=== PATIENT | female | born 1965 | race Caucasian/White ===

== ENCOUNTER 2016-10-14 00:59 | Observation (INO) ==
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
[2016-10-14] MEDS ORDERED: Tdap (Boostrix) Vaccine 0.5 ML SYRINGE IM ONE (03:16)
[2016-10-14 03:44] LABS: Basophils # 0.1 K/mcL (0.0-0.2); Basophils % 0.4 %; Eosinophils # 0.2 K/mcL (0.0-0.6); Eosinophils % 0.9 %; Hematocrit 49.5 % (35.3-44.9); Hemoglobin 16.5 g/dL (11.5-15.4); Immature Granulocytes % 0.3 % (0-4); Lymphocytes # 6.2 K/mcL (0.6-4.6); Lymphocytes % 30.1 %; Mean Corpuscular HGB Conc 33.3 g/dL (31.6-35.5); Mean Corpuscular Hemoglobin 28.9 pg (28.0-33.3); Mean Corpuscular Volume 86.7 fL (83.0-100.0); Mean Platelet Volume 9.7 fL (9.4-12.4); Monocytes # 0.9 K/mcL (0.0-1.3); Monocytes % 4.5 %; Neutrophils # 13.1 K/mcL (1.6-8.9); Platelet Count 295 K/mcL (140-400); Red Blood Count 5.71 M/mcL (3.82-4.97); Red Cell Distribution Width 12.7 % (11.5-14.5); Segmented Neutrophils % 63.8 %
[2016-10-14 03:59] LABS: BUN/Creatinine Ratio 12 (6-26); Blood Urea Nitrogen 10 mg/dL (7-20); Calcium 9.7 mg/dL (8.6-10.8); Carbon Dioxide 22 mEq/L (19-29); Chloride 108 mEq/L (98-109); Ethanol 99 mg/dL (0-10); Glucose 79 mg/dL (70-99); Osmolality,Calculated 292 (280-300); Potassium 3.5 mEq/L (3.5-4.5); Sodium 142 mEq/L (136-145); eGFR For African Americans > 60 (> 60); eGFR For Non-African Americans > 60 (> 60)
[2016-10-14 04:01] LABS: Acetaminophen < 1.0 mcg/mL (10-30); Salicylate < 5.0 mg/dL (15-30)
[2016-10-14 04:31] LABS: Bilirubin,Urine Negative (Negative); Blood,Urine Trace (Negative); Clarity,Urine Clear (Clear); Color,Urine Yellow (Yellow); Glucose,Urine (UA) Normal (Normal); Ketones,Urine Negative (Negative); Leukocyte Esterase,Urine Negative (Negative); Nitrite,Urine Negative (Negative); Protein,Urine Trace mg/dL (Neg-Trace); Specific Gravity,Urine 1.008 (1.010-1.025); Urobilinogen,Urine Normal (Normal)
[2016-10-14 04:33] LABS: Bacteria,Urine None Seen per hpf (None-Few); Hyaline Casts,Urine None Seen per lpf (None-Few); RBC,Urine 0-3 per hpf (0-3); Squamous Epithelial Cell,Urine Many per lpf (None-Few); WBC,Urine 0-3 per hpf (0-3)
[2016-10-14 04:36] LABS: Amphetamine Screen,Urine Negative ng/mL (Cutoff=1000); Barbiturate Screen,Urine Negative ng/mL (Cutoff=200); Benzodiazepines Screen,Urine Negative ng/mL (Cutoff=200); Cannabinoid Screen,Urine Negative ng/mL (Cutoff = 50); Cocaine Screen,Urine Positive ng/mL (Cutoff= 300); Opiate Screen,Urine Negative ng/mL (Cutoff=300); Phencyclidine Screen,Urine Negative ng/mL (Cutoff=25)
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
[2016-10-14] MEDS ORDERED: Naloxone 0.4 MG/ML INJ IVP PRN (09:19)
[2016-10-14] MEDS ORDERED: Acetaminophen 325 MG TABLET PO PRN (09:20)
[2016-10-14] MEDS: 0.9 % Sodium Chloride 1,000 ML IVC SCH (09:53)
[2016-10-14] MEDS: *HR* OxyCODONE Immed Rel 5 MG TABLET PO PRN ×2 (11:58→18:01)
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
[2016-10-14] MEDS: *HR* LORazepam 0.5 MG TABLET PO PRN (20:08)
[2016-10-15] MEDS: 0.9 % Sodium Chloride 1,000 ML IVC SCH ×4 (00:28→22:21)
[2016-10-15] MEDS: *HR* OxyCODONE Immed Rel 5 MG TABLET PO PRN ×4 (00:30→19:44)
[2016-10-15] MEDS: *HR* LORazepam 0.5 MG TABLET PO PRN ×3 (07:01→19:50)
--- NOTE | 2016-10-15 12:55 | Electrocardiograph Report ---
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
[2016-10-15] MEDS: Nicotine 14 MG PATCH.TD24 TD SCH (22:18)
[2016-10-16] MEDS: *HR* OxyCODONE Immed Rel 5 MG TABLET PO PRN ×4 (02:45→21:18)
[2016-10-16 04:13] LABS: BUN/Creatinine Ratio 10 (6-26); Blood Urea Nitrogen 7 mg/dL (7-20); Calcium 8.3 mg/dL (8.6-10.8); Carbon Dioxide 24 mEq/L (19-29); Chloride 114 mEq/L (98-109); Glucose 83 mg/dL (70-99); Osmolality,Calculated 295 (280-300); Potassium 3.9 mEq/L (3.5-4.5); Sodium 144 mEq/L (136-145); eGFR For African Americans > 60 (> 60); eGFR For Non-African Americans > 60 (> 60)
[2016-10-16 04:55] LABS: Basophils # 0.1 K/mcL (0.0-0.2); Basophils % 0.6 %; Eosinophils # 0.3 K/mcL (0.0-0.6); Eosinophils % 3.1 %; Hematocrit 36.1 % (35.3-44.9); Hemoglobin 12.4 g/dL (11.5-15.4); Immature Granulocytes % 0.2 % (0-4); Immature Platelets 4.7 % (1.1-6.1); Lymphocytes # 3.7 K/mcL (0.6-4.6); Lymphocytes % 41.1 %; Mean Corpuscular HGB Conc 34.3 g/dL (31.6-35.5); Mean Corpuscular Hemoglobin 30.2 pg (28.0-33.3); Mean Corpuscular Volume 87.8 fL (83.0-100.0); Mean Platelet Volume 10.2 fL (9.4-12.4); Monocytes # 0.5 K/mcL (0.0-1.3); Neutrophils # 4.4 K/mcL (1.6-8.9); Platelet Count 201 K/mcL (140-400); Red Blood Count 4.11 M/mcL (3.82-4.97); Red Cell Distribution Width 12.9 % (11.5-14.5)
[2016-10-16] MEDS: Nicotine 14 MG PATCH.TD24 TD SCH (07:29)
[2016-10-16] MEDS: *HR* LORazepam 0.5 MG TABLET PO PRN ×3 (07:29→21:20)
[2016-10-16] MEDS: 0.9 % Sodium Chloride 1,000 ML IVC SCH ×2 (07:32→17:35)
[2016-10-16] MEDS: Loratadine 10 MG TABLET PO SCH (09:10)
[2016-10-16] MEDS: predniSONE 20 MG TABLET PO SCH (09:11)
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
[2016-10-16] MEDS: Ipratropium/Albuterol Neb 3 ML IH SCH ×3 (11:10→22:14)
[2016-10-17] MEDS: *HR* LORazepam 0.5 MG TABLET PO PRN ×4 (03:26→23:11)
[2016-10-17] MEDS: *HR* OxyCODONE Immed Rel 5 MG TABLET PO PRN ×4 (03:26→23:11)
[2016-10-17] MEDS: Ipratropium/Albuterol Neb 3 ML IH SCH ×4 (04:10→22:26)
[2016-10-17] MEDS: predniSONE 20 MG TABLET PO SCH (08:05)
[2016-10-17] MEDS: Loratadine 10 MG TABLET PO SCH (08:05)
[2016-10-17] MEDS: Nicotine 14 MG PATCH.TD24 TD SCH (08:06)
[2016-10-17] MEDS: 0.9 % Sodium Chloride 1,000 ML IVC SCH (09:12)
[2016-10-17] MEDS ORDERED: Ibuprofen 600 MG TABLET PO ONE (13:08)
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
[2016-10-18] MEDS: Ipratropium/Albuterol Neb 3 ML IH SCH ×2 (04:25→11:02)
[2016-10-18 07:17] VITALS: BP 146/98
[2016-10-18] MEDS: Loratadine 10 MG TABLET PO SCH (07:58)
[2016-10-18] MEDS: Nicotine 14 MG PATCH.TD24 TD SCH (08:00)
[2016-10-18] MEDS: predniSONE 20 MG TABLET PO SCH (08:02)
[2016-10-18] MEDS: *HR* LORazepam 0.5 MG TABLET PO PRN (08:03)
[2016-10-18] MEDS: *HR* OxyCODONE Immed Rel 5 MG TABLET PO PRN (08:03)
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
== END 2016-10-18 12:27 | disposition home or self-care (01) ==
LOC: EMEROO 00:59 → 3BNU 00:59
PROVIDERS: ADMIT Internal Medicine Endocrinology, Diabetes & Metabolism; ATTEND Nurse Practitioner Family